=== PATIENT | male | born 1990 | race African-American/Black ===

== ENCOUNTER 2021-08-28 18:58 | Emergency (ER) | payer OTHER ==
[~2021-08-28] VITALS: Ht 177.8 cm; Wt 90.0 kg
[2021-08-28 19:05] VITALS: BP 143/90
== END 2021-08-28 19:26 | disposition home or self-care (01) ==
LOC: ER 18:58
DX: Z02.89 Encounter for other administrative examinations (principal)
CPT/HCPCS: 99283